=== PATIENT | female | born 1940 | race Caucasian/White ===

== ENCOUNTER 2022-10-21 14:32 | Emergency (ER) | payer BC ==
[~2022-10-21] VITALS: Ht 154.9 cm; Wt 59.0 kg
[~2022-10-21 14:32] MED LIST: ARFO15VI3 NEB; ASPI81TA52 PO; BUDE0.5A3 NEB; CYCL-1 PO; ESCI20TA PO; HYDR-3565 PO; IPRA3AMP31 IH; LACT1CAP65 PO; LISI10TA27 PO; NITR0.4T51 SL; RANI150C4 PO; SIMV-42 PO
[2022-10-21] MEDS ORDERED: normal saline 1000ML IV soln IVB ONE (15:00)
[2022-10-21] MEDS ORDERED: magnesium 2GM in 50ml NS 50 ML IV ONE (15:00)
[2022-10-21 15:03] LABS: BASOPHILS % (AUTO) 0.3 % (0-1); EOSINOPHILS # (AUTO) 0.2 X10'3 (0-0.9); EOSINOPHILS % (AUTO) 1.6 % (0-6); HEMATOCRIT 39.6 % (35.0-45.0); HEMOGLOBIN 12.8 g/dl (12.0-16.0); LYMPHOCYTES # (AUTO) 3.6 X10'3 (1.1-4.8); LYMPHOCYTES % (AUTO) 27.7 % (21-51); MEAN CORPUSCULAR HEMOGLOBIN 27.8 PG (27.0-31.0); MEAN CORPUSCULAR HGB CONC 32.4 g/dL (33.0-36.5); MEAN CORPUSCULAR VOLUME 85.7 FL (78-98); MEAN PLATELET VOLUME 6.9 FL (7.4-10.4); MONOCYTES % (AUTO) 7.6 % (2-12); NEUTROPHILS # (AUTO) 8.2 X10'3 (1.8-7.7); NEUTROPHILS % (AUTO) 62.8 % (42-75); PLATELET COUNT 388 X10'3 (140-440); RED BLOOD COUNT 4.62 X10'6 (4.20-5.60); RED CELL DISTRIBUTION WIDTH 18.4 % (11.5-14.5)
[2022-10-21 15:18] LABS: ALANINE AMINOTRANSFERASE 23 U/L (12-78); ALBUMIN 3.7 G/DL (3.4-5.0); ALBUMIN/GLOBULIN RATIO 1.3 (1.1-1.5); ALKALINE PHOSPHATASE 80 IU/L (46-116); ANION GAP 6 (8-16); ASPARTATE AMINO TRANSFERASE 16 U/L (10-37); BILIRUBIN,TOTAL 0.2 MG/DL (0.1-1.0); BLOOD UREA NITROGEN 25 MG/DL (7-18); BUN/CREATININE RATIO 23.6 (6.6-38.0); CALCIUM 9.8 MG/DL (8.5-10.1); CHLORIDE 101 MMOL/L (99-107); CREATININE 1.06 MG/DL (0.40-0.90); GLUCOSE 130 MG/DL (70-104); POTASSIUM 4.1 MMOL/L (3.5-5.1); SODIUM 136 MMOL/L (135-145); TOTAL CARBON DIOXIDE 28.8 MMOL/L (24-32); TOTAL PROTEIN 6.5 G/DL (6.4-8.2); eGFR 50 ML/MIN
[2022-10-21 15:26] LABS: MAGNESIUM 2.1 MG/DL (1.5-2.4)
[2022-10-21 15:28] LABS: D-DIMER 1.21 MG/L FEU (0-0.50)
[2022-10-21] MEDS ORDERED: methylPREDNISolone sod succ/PF 40mg inj. IV ONE (15:29)
[2022-10-21 18:26] VITALS: BP 129/59
== END 2022-10-21 18:29 | disposition home or self-care (01) ==
LOC: ER 14:32
DX: J44.1 Chronic obstructive pulmonary disease with (acute) exacerbation (principal); E86.0 Dehydration; Z88.0 Allergy status to penicillin; Z79.82 Long term (current) use of aspirin; Z79.899 Other long term (current) drug therapy
CPT/HCPCS: 36415; 71045; 80053; 83735; 83880; 84145; 84484; 85025; 85379; 93005; 96365; 96366; 96375; 99285; J2920; J3475; J7030